=== PATIENT | female | born 1950 | race Caucasian/White ===

== ENCOUNTER 2019-10-22 19:21 | Inpatient (IN) | payer MEDICARE, OTHER ==
[~2019-10-22] VITALS: Ht 160 cm; Wt 91.2 kg
--- NOTE | 2019-10-22 19:23 | NUR ---
MIRROR FABRICATION SUPERVISOR CALLED NO AVAILABLE SITTER. OK TO USE SECURITY AT THIS TIME.
--- NOTE | 2019-10-22 19:26 | NUR ---
1:1 MATTRESS PACKER YANELIS AT BEDSIDE FOR PATIENT SAFETY ROOM 04B.
--- NOTE | 2019-10-22 19:30 | NUR ---
PATIENT WAS MSE BY DR GARIBAY IN ROOM 04B.
[2019-10-22] MEDS ORDERED: LORAZEPAM 0.5 MG TABLET PO ONE (19:45)
--- NOTE | 2019-10-22 19:45 | NUR ---
PATIENT IN BED NO C/O ANY PAIN.
[2019-10-22] MEDS ORDERED: LORAZEPAM 1 MG TABLET ONE (19:50)
--- NOTE | 2019-10-22 20:03 | NUR ---
PATIENT IS MEDICALLY CLEARED BY DR GARIBAY.
[2019-10-22] MEDS ORDERED: ALPR0.255 PO (20:13)
[2019-10-22] MEDS ORDERED: CARV12.52 PO (20:13)
[2019-10-22] MEDS ORDERED: HYDR-3980 PO (20:13)
--- NOTE | 2019-10-22 20:15 | NUR ---
1:1 COMMISSIONER OF RELOCATION SERVICES AT BEDSIDE PATIENT NOT IN ANY DISTRESS. WILL CONTINUE TO MONITOR FOR PATIENT SAFETY.
--- NOTE | 2019-10-22 20:25 | NUR ---
PATIENT WENT TO BATHROOM NORMAL STEADY GAIT.
[2019-10-22] MEDS ORDERED: ACETAMINOPHEN 325 MG TABLET PO PRN (21:00)
[2019-10-22] MEDS ORDERED: LORAZEPAM 0.5 MG TABLET PO PRN (21:00)
[2019-10-22] MEDS ORDERED: MAGNESIUM HYDROXIDE 30 ML LIQUID UDC PO PRN (21:00)
[2019-10-22] MEDS ORDERED: MAG HYDROX/AL HYDROX/SIMETH 30 ML LIQUID UDC PO PRN (21:00)
[2019-10-22 21:11] VITALS: BP 168/85
[2019-10-22] MEDS ORDERED: CARVEDILOL 12.5 MG TABLET PO ONE (22:30)
[2019-10-22] MEDS ORDERED: CARVEDILOL 12.5 MG TABLET ONE (23:25)
[2019-10-22] MEDS: HYDROCODONE/APAP 10-325 MG TABLET PO PRN (23:36)
--- NOTE | 2019-10-23 01:45 | NUR ---
GPS/RN: PT 69Y/O FEMALE, ADMITTED TO MHU FROM HOME IN THE CARE OF ADÁN FENTON/SOO. PT WAS BROUGHT IN FROM [facility] TO ER ON 5150 HOLD DUE TO SI STATEMENT AND DANGER TO SELF AND OTHERS PER DEPRESSION, ACCORDING TO ADMISSION REASON. PT PLANED TO OVERDOSE ON XANAX AND PLANED ON KILLING HER AND PT WAS BECOMING AGGRESSIVE TOWARD . UPON FACE TO FACE ASSESSMENT/EVALUATION, PT A/O X3 BUT A BIT CONFUSE, AND HYPERVERBAL AND LIKE TALKING ON AND ON. PT STATE SHE IS NOT SURE WHY SHE IS BEING PLACED HERE, MY IS THE ONE THAT NEED PSYCH EVAL AND TREATMENT, I AM ONLY DEPRESS AND TIRED OF DOING EVERYTHING FOR HIM. I LOST MY SON AND IT ALL GET ON ME THAT IS WHY I MADE THOSE COMMENT! PT DENIED SI OR PLAN OF SI. PT HISTORY: HTN, ANXIETY, CHRONIC PAIN DUE TO ACCORDING TO HER FRACTURE OF LEFT LOWER LEG AND HIP PAIN WITH BLOOD CLOT NOT FOUND ON DOCUMENT AT THIS TIME. PT RIGHTS HANDBOOK AND ADVISEMENT GIVEN, UNIT RULES EXPLAINED, PT ACKNOWLEDGED AND UNDERSTAND RULES. PT REFUSED TO NAME PERSON TO BE CONTACTED EVEN THOUGH NAME WAS AT THE ADMISSION NEXT OF KIN. PT SEEM TO BE A BIT CONFUSED, Q/15MINS HEAD CHECK INITIATED AND WILL OBSERVE FREQUENTLY. PAIN MEDICATION NORCO 10/325MG GIVE AND COREG 12.5 GIVEN PER ELEVATED BLOOD PRESSURE. PT TOOK A SHOWER AND KEPT CLEAN. AMBULATORY BUT WEAKEN LE, MAY NEED PT EVAL. WILL CONTINUE TO MONITOR.
[2019-10-23 07:30] VITALS: BP 126/84
[2019-10-23 07:55] LABS: BASOPHILS % (AUTO) 0.5 % (0.0-2.0); EOSINOPHILS # (AUTO) 0.2 K/uL (0.0-0.7); EOSINOPHILS % (AUTO) 2.7 % (0.0-7.0); HEMATOCRIT 42.3 % (31.2-41.9); HEMOGLOBIN 14.3 g/dL (10.9-14.3); LYMPHOCYTES # (AUTO) 1.9 K/uL (20.0-40.0); MEAN CORPUSCULAR HEMOGLOBIN 31.5 uug (24.7-32.8); MEAN CORPUSCULAR HGB CONC 34 g/dL (32.3-35.6); MEAN CORPUSCULAR VOLUME 92.9 fL (75.5-95.3); MONOCYTES # (AUTO) 0.6 K/uL (2.0-10.0); MONOCYTES % (AUTO) 9.9 % (0.0-11.0); NEUTROPHILS % (AUTO) 53.9 % (38.5-71.5); PLATELET COUNT (AUTO) 155 K/uL (179-408); RED BLOOD CELL COUNT(AUTO) 4.55 MIL/uL (3.63-4.92); WHITE BLOOD COUNT (AUTO) 5.6 K/uL (3.8-11.8)
[2019-10-23] MEDS: CARVEDILOL 12.5 MG TABLET PO SCH ×2 (08:26→17:21)
[2019-10-23 10:46] LABS: THYROID STIMULATING HORMONE 1.139 mIU/mL (0.358-3.740)
[2019-10-23 10:59] LABS: BILIRUBIN,TOTAL 0.7 mg/dL (0.2-1.0); CREATININE 1.3 mg/dL (0.6-1.3); MAGNESIUM 1.4 mg/dL (1.8-2.4); PHOSPHOROUS 3.7 mg/dL (2.5-4.9); POTASSIUM 3.3 mmol/L (3.5-5.1); TOTAL PROTEIN, SERUM 6.7 g/dL (6.4-8.2)
[2019-10-23] MEDS: GABAPENTIN 100 MG CAPSULE PO SCH ×2 (12:01→17:20)
[2019-10-23] MEDS: DULOXETINE 60 MG CAPSULE.DR PO SCH (13:10)
[2019-10-23 14:17] LABS: *BILIRUBIN,URIN NEGATIVE (NEGATIVE); *BLOOD, URINE 1+ (NEGATIVE); *COLOR,URINE YELLOW (YELLOW); *KETONES,URINE NEGATIVE (NEGATIVE); *UROBILINOGEN,URINE 0.2 E.U./dl (NORMAL); NITRITE, URINE NEGATIVE (NEGATIVE); UGLUCOSE 2+ (NEGATIVE)
[2019-10-23 14:29] LABS: *AMPHETAMINE, URINE NEGATIVE (NEGATIVE); *BARBITURATE, URINE NEGATIVE (NEGATIVE); *CANNABINOID, URINE NEGATIVE (NEGATIVE); *COCCAINE, URINE NEGATIVE (NEGATIVE); *OPIATE, URINE POSITIVE (NEGATIVE); *PHENCYCLIDINE SCREEN,URINE NEGATIVE (NEGATIVE)
[2019-10-23 14:50] LABS: *CLARITY,URINE HAZY (CLEAR); LEUKOCYTE ESTERASE ,URINE TRACE (NEGATIVE)
[2019-10-23 14:52] LABS: BACTERIA,URINE MANY /HPF (NONE SEEN); SQUAMOUS EPITHELIAL CELL,UR MODERATE /HPF (NONE SEEN)
--- NOTE | 2019-10-23 15:39 | NUR ---
MARICARMEN UR Note: Spoke with Lester hospice case manager from [facility] who stated that they have authorization for this patient for today and will follow up tomorrow for clinical review. MARICARMEN will faxed patient's progress notes tomorrow for continued authorization. Awaiting for authorization #. Addendum: 10/23/19 at 1547 by LINDA SIMS Lester's phone number ([phone]; fax: [phone]).
--- NOTE | 2019-10-23 15:41 | NUR ---
INITIAL DISCHARGE PLAN: Pt currently lives in her personal home with her located at [address] , [place] [address]; [phone].Per pt, she plans to return home after discharge. MARICARMEN will work with pt, pt family, and MD regarding appropriate discharge planning. SW will form a safe and proper discharge.
[2019-10-23 16:00] VITALS: BP 127/86
[2019-10-23 17:06] LABS: *CREATININE,URINE 161.2 mg/dL (30-125); *URINE TOTAL PROTEIN RANDOM 27.3 mg/dL (<150/24HR)
[2019-10-23] MEDS: CEphaleXIN 500 MG CAPSULE PO SCH (17:20)
[2019-10-23] MEDS: ALPRAZOLAM 0.5 MG TABLET PO PRN (17:29)
[2019-10-23] MEDS ORDERED: CARVEDILOL 12.5 MG TABLET PO SCH ×2 (18:00→21:00)
--- NOTE | 2019-10-23 18:06 | NUR ---
GPS NOTE:. Received patient this am in bed. Slight incontinence noted. Urine specimen sent to lab, positive for UTI. PC ANALYST notified and orders received for antibiotics. Patient has been anxious, repetitive and hyperverbal the whole shift. Medicated per order. Patient is unclear of facts when asked questions, and gives different answers for same question to different people. VS have been stable, patient is ambulatory with a walker and medication compliant. Continuing to monitor for safety , anxiety and behavior escalation.
[2019-10-23] MEDS: HYDROCODONE/APAP 10-325 MG TABLET PO PRN (20:45)
[2019-10-23 21:30] VITALS: BP 148/78
[2019-10-23] MEDS: ZOLPIDEM 5 MG TABLET PO PRN (22:07)
--- NOTE | 2019-10-24 06:03 | NUR ---
Patient slept a total of 5.15 hours.
[2019-10-24 07:27] LABS: THYROID STIMULATING HORMONE 1.904 mIU/mL (0.358-3.740)
[2019-10-24 07:30] VITALS: BP 104/61
[2019-10-24 08:46] LABS: CREATININE 1.4 mg/dL (0.6-1.3); MAGNESIUM 1.5 mg/dL (1.8-2.4); PHOSPHOROUS 4.3 mg/dL (2.5-4.9); POTASSIUM 4.1 mmol/L (3.5-5.1); URIC ACID 6.4 mg/dL (2.6-6.0)
[2019-10-24] MEDS: DULOXETINE 60 MG CAPSULE.DR PO SCH ×2 (09:28→18:16)
[2019-10-24] MEDS: CEphaleXIN 500 MG CAPSULE PO SCH ×2 (09:29→18:15)
[2019-10-24] MEDS: CARVEDILOL 12.5 MG TABLET PO SCH ×2 (09:29→18:15)
[2019-10-24] MEDS: GABAPENTIN 100 MG CAPSULE PO SCH (09:29)
--- NOTE | 2019-10-24 09:30 | NUR ---
Gps/Contact Center Specialist- Noted patient with crying spells during interview, noted jumping from one topic to another, topics does not made sense. Hesitancy in taking her morning meddications, reviewed with patient. Encouraged participation in her group therapy. Encouraged to continue to verbalized feelings and needs.
[2019-10-24] MEDS ORDERED: CEphaleXIN 500 MG CAPSULE PO SCH (09:49)
[2019-10-24] MEDS: ALPRAZOLAM 0.5 MG TABLET PO PRN (10:16)
[2019-10-24] MEDS ORDERED: MAGNESIUM OXIDE 400 MG TABLET PO ONE ×2 (10:45→12:00)
--- NOTE | 2019-10-24 11:00 | NUR ---
UR Note: Authorization #[id number] Spoke with Lester outpatient case manager from [facility] and gave updated clinicals verbally as well as fax. Lester's phone number ([phone]; fax: [phone]).
[2019-10-24] MEDS ORDERED: diphenhydrAMINE 1% CREAM 28.3 GM TUBE TP PRN (11:30)
--- NOTE | 2019-10-24 12:15 | NUR ---
Gps/Belly Dump Driver- Received call from Dr Greene ( Radiology) regarding results of Doppler study right leg. (Partial thrombus to right popliteal waqar) results called to Argelia Clifford NP, will check results.
--- NOTE | 2019-10-24 15:37 | NUR ---
Social Work Firearms Report (DOJ): Supervisor Water [employer] Plant completed and submitted a [employer] firearms report for 5150 danger to self and others certification. A copy of report has been placed in patient chart.
[2019-10-24 16:00] VITALS: BP_SYST 107; BP_SYST 159; BP_DIAS 83; BP_DIAS 86
--- NOTE | 2019-10-24 17:30 | NUR ---
Gps/Learning Operations Specialist- Patient was able to talked to her daughter this pm. Interacting fairly well with her roommate, easily gets anxious, worried about her , who is unable to take care of himself per pt.
[2019-10-24] MEDS: HYDROCODONE/APAP 10-325 MG TABLET PO PRN (18:53)
[2019-10-24 20:00] VITALS: BP 121/78
[2019-10-24] MEDS: ZOLPIDEM 5 MG TABLET PO PRN (22:04)
[2019-10-25] MEDS: HYDROCODONE/APAP 10-325 MG TABLET PO PRN ×3 (01:05→18:53)
[2019-10-25 07:30] VITALS: BP 92/52
[2019-10-25] MEDS: CARVEDILOL 12.5 MG TABLET PO SCH ×2 (08:00→17:59)
[2019-10-25 08:42] LABS: BASOPHILS % (AUTO) 0.5 % (0.0-2.0); EOSINOPHILS # (AUTO) 0.2 K/uL (0.0-0.7); EOSINOPHILS % (AUTO) 3.6 % (0.0-7.0); HEMATOCRIT 42.2 % (31.2-41.9); HEMOGLOBIN 14.3 g/dL (10.9-14.3); LYMPHOCYTES % (AUTO) 33.5 % (20.5-51.5); MEAN CORPUSCULAR HEMOGLOBIN 31.5 uug (24.7-32.8); MEAN CORPUSCULAR HGB CONC 34 g/dL (32.3-35.6); MEAN CORPUSCULAR VOLUME 93.1 fL (75.5-95.3); MONOCYTES # (AUTO) 0.6 K/uL (2.0-10.0); MONOCYTES % (AUTO) 9.7 % (0.0-11.0); NEUTROPHILS # (AUTO) 3.1 K/uL (1.8-8.9); NEUTROPHILS % (AUTO) 52.7 % (38.5-71.5); PLATELET COUNT (AUTO) 159 K/uL (179-408); RED BLOOD CELL COUNT(AUTO) 4.53 MIL/uL (3.63-4.92); WHITE BLOOD COUNT (AUTO) 5.9 K/uL (3.8-11.8)
[2019-10-25] MEDS: DULOXETINE 60 MG CAPSULE.DR PO SCH ×2 (08:42→16:57)
[2019-10-25] MEDS: CEphaleXIN 500 MG CAPSULE PO SCH ×2 (08:42→16:57)
[2019-10-25 08:52] LABS: CREATININE 1.3 mg/dL (0.6-1.3); MAGNESIUM 1.6 mg/dL (1.8-2.4); PHOSPHOROUS 4.6 mg/dL (2.5-4.9); POTASSIUM 3.8 mmol/L (3.5-5.1)
[2019-10-25] MEDS: ALPRAZOLAM 0.5 MG TABLET PO PRN ×2 (09:31→21:26)
[2019-10-25 10:54] VITALS: BP 132/83
--- NOTE | 2019-10-25 11:00 | NUR ---
Gps/Public Health- Showered self ind. after set up,verbalized adequate relief from her lower back pain. Still gets emotionally labile, verbalized feelings thet she is sorry unable to take care of her that is debilitated from parkinson. Verbalized feelings of being depressed, but denies any intension to hurt self.
[2019-10-25] MEDS ORDERED: MAGNESIUM OXIDE 400 MG TABLET PO ONE (12:15)
[2019-10-25 15:21] VITALS: BP 125/68
--- NOTE | 2019-10-25 15:46 | NUR ---
SW Family Contact: SW spoke with patient's daughter, Toshia ([phone]) who was concerned about the patient's discharge plan. This clinical writer informed Toshia about the patient's insurance, [employer], which is not authorizing for continued stay at the hospital. Toshia became verbally aggressive with this clinical writer and litigious stave log cut off saw operator involved if the patient is discharged unstable. This clinical writer attempted to explain to Toshia that the decision is not the social workers however, it is [employer] that is not authorizing for the patient to continue to get treatment in the hospital. Toshia stated that there is a police report that the patient cannot return home and she has no where to go. Toshia was alleging "you cannot just throw her in the street". This clinical writer firmly stated that this is not the case. Toshia requested to speak with someone else and hung up the phone. This clinical writer spoke with director Macey Mejia LCSW and attempted to call Toshia twice, however phone rang and went to voicemail both times. One voicemail was left to return our call back. This clinical writer then received a call from patient's niece, Angelica ([phone]) who spoke with Toshia and was calling to clarify the information mentioned above. This clinical writer explain the [employer] process and that they are not authorizing the patient's stay. Angelica was more understanding. Angelica stated that all they want is the best care for the patient and this clinical writer assured that we want the best and safest treatment and discharge plan for the patient as well. Angelica stated that they will look for a placement for the patient and will inform this clinical writer Monday by 10am.
--- NOTE | 2019-10-25 17:30 | NUR ---
Gps/Company Miner Blasting- Interacting fairly well with her roommate, patient conversat, emotionally labile, crying spells, verbalized her addiction to pain medications in the past years as well as dependency to xanax, encouraged continued verbalizations of her needs and feelings.
[2019-10-25] MEDS: RIVAROXABAN 10 MG TABLET PO SCH (18:43)
[2019-10-25 20:20] VITALS: BP 139/79
[2019-10-26] MEDS: ZOLPIDEM 5 MG TABLET PO PRN (01:11)
[2019-10-26] MEDS: HYDROCODONE/APAP 10-325 MG TABLET PO PRN ×3 (02:23→21:13)
[2019-10-26 07:30] VITALS: BP 105/58
[2019-10-26] MEDS: DULOXETINE 60 MG CAPSULE.DR PO SCH ×2 (09:16→17:17)
[2019-10-26] MEDS: CARVEDILOL 12.5 MG TABLET PO SCH ×2 (09:17→18:10)
[2019-10-26] MEDS: CEphaleXIN 500 MG CAPSULE PO SCH ×2 (09:17→17:17)
[2019-10-26] MEDS ORDERED: LORATADINE 10 MG TABLET PO PRN (10:00)
--- NOTE | 2019-10-26 15:58 | NUR ---
GPS: PT A/OX3. PT WAS RECEIVED IN BED, NO S/S OF SOB, BREATHING EVEN WNL. PT ATE BREAKFAST IN ROOM, REFUSED GROUP ACTIVITY. PT NOTED C/O OF ALLERGY SYMPTOMS SAYING SHE CAN FEEL IT COMING! LEGAL INSTRUCTOR WAS INFORMED AND PRN ANTIALLERGY MED ORDER RECEIVED. PT AMBULATORY WITH STABLE GAIT USING WALKER. PT C/O LEFT KNEE AND HIP CHRONIC PAIN AND PRN NORCO 10/325MG GIVEN AT 1356. REASSESSED AND PT REPORT EFFECTIVE. NO MAJOR BEHAVIOR NOTED, PT DENIED SI, OR INTENT TO HARM SELF OR OTHERS BUT PT IS DEPRESS NOT WANTING TO ASSOCIATE WITH OTHERS. ENCOURAGED TO VENT OUT FEELINGS AND CONTINUE MONITOR.
[2019-10-26 16:00] VITALS: BP 154/85
[2019-10-26] MEDS: RIVAROXABAN 10 MG TABLET PO SCH (18:11)
[2019-10-26 20:45] VITALS: BP 116/79
[2019-10-26] MEDS: ALPRAZOLAM 0.5 MG TABLET PO PRN (21:13)
[2019-10-27] MEDS: ZOLPIDEM 5 MG TABLET PO PRN ×2 (00:40→21:13)
--- NOTE | 2019-10-27 06:35 | NUR ---
Received Pt in her room, in bed awake. A+Ox3, VS stable. Pt was tearful on approach, and appears very depressed. Pt denies SI and denies ever wanting to hurt herself, blaming the whole reason for her admission on her at home being "sick" of her. Denies SI/HI and verbally contracts for safety. Pt is hyperverbal with pressured speech and tangential in thought process, emotional support provided.
[2019-10-27 07:30] VITALS: BP 113/73
[2019-10-27] MEDS: CEphaleXIN 500 MG CAPSULE PO SCH ×2 (08:22→17:35)
[2019-10-27] MEDS: DULOXETINE 60 MG CAPSULE.DR PO SCH ×2 (08:22→17:38)
[2019-10-27] MEDS: CARVEDILOL 12.5 MG TABLET PO SCH ×2 (08:23→18:00)
[2019-10-27] MEDS: HYDROCODONE/APAP 10-325 MG TABLET PO PRN ×2 (08:29→19:43)
[2019-10-27] MEDS: ALPRAZOLAM 0.5 MG TABLET PO PRN ×2 (09:39→18:44)
[2019-10-27 15:32] VITALS: BP 125/53
--- NOTE | 2019-10-27 16:28 | NUR ---
GPS: RECEIVED PT AWAKE IN BED, A/OX3. NO S/S OF SOB, V/S STABLE AND WNL. PT CONTINUE TO REFUSED GROUP ACTIVITY AND STAYS IN HER ROOM MOST TIMES DURING SHIFT. PT AMBULATORY WITH STABLE GAIT USING WALKER AND WITHOUT WALKER MOST TIMES. PRN PAIN MEDICATION GIVEN NORCO 10/325MG AT 0829 PER C/O LEFT KNEE, LEG AND HIP CHRONIC PAIN. REASSESSED AND PT REPORT SOME EFFECT. NO MAJOR BEHAVIOR NOTED BUT DEPRESS AND OVER CONCERN WITH HEALTH. PT CONSTANTLY LINING UP MEDICATIONS THAT SHE WILL TAKE BEFORE THE END OF THE DAY. SUCH XANAX BEFORE THE ANXIETY KICKS IN. 0939 PT REQUESTED FOR ANTIANXIETY AND PRN XANAX WAS GIVEN. PT DENIED SI, OR INTENT TO HARM SELF OR OTHERS. PT DAUGHTER CALLED AND WAS TRYING TO CLARIFY D/C HOME INFORMATION, ADVISED TO CALL ON WORKING DAY TO SPEAK TO SD DUE TO LIMITED INFO NOTED ON SD NOTES. ENCOURAGED TO VENT OUT FEELINGS. PT C/O FEELING CONSTIPATED AND WANT SOMETHING BEFORE THE NIGHT. PRN MOM 30ML GIVEN AT 1622 PT INSIST OF STOOL SOFTER NOW. WILL CONTINUE MONITOR.
[2019-10-27] MEDS: RIVAROXABAN 10 MG TABLET PO SCH (18:18)
[2019-10-27 20:26] VITALS: BP 130/80
[2019-10-28 07:30] VITALS: BP 111/49
[2019-10-28] MEDS: CARVEDILOL 12.5 MG TABLET PO SCH ×2 (08:00→16:50)
[2019-10-28] MEDS: CEphaleXIN 500 MG CAPSULE PO SCH ×2 (08:40→16:48)
[2019-10-28] MEDS: DULOXETINE 60 MG CAPSULE.DR PO SCH ×2 (08:40→16:50)
[2019-10-28] MEDS: HYDROCODONE/APAP 10-325 MG TABLET PO PRN (08:41)
[2019-10-28] MEDS: ALPRAZOLAM 0.5 MG TABLET PO PRN ×2 (09:57→16:46)
--- NOTE | 2019-10-28 15:00 | NUR ---
MARICARMEN Note: MARICARMEN attempted to call Lester case managers at [facility] ([phone]) 4 times but phone does not ring or have a dial tone. Unable to reach Lester to inform of patient's discharge today. Will attempt to reach again tomorrow.
--- NOTE | 2019-10-28 15:10 | NUR ---
Brief Substance Abuse Intervention: Patient was provided with a brief substance abuse intervention and referred to the following substance abuse programs: [facility] Substance Abuse Self-helpline ([phone]); [facility] [address] [place] [address] ([phone]); [facility] [address] [facility] [address] ([phone]); [facility] ([phone]); [facility] ([phone]); [facility] ([phone]); [facility] ([phone]).
--- NOTE | 2019-10-28 15:27 | NUR ---
SW Discharge Note: Patient will be discharged home today [address] [place] [address] ([phone]). Patient will be providing her own transportation today at 4pm. Patient is alert and oriented times 4. Patient is aware and agreeable with discharge plans. Patient denies suicidal or homicidal ideation. Patient presents calm and cooperative with discharge. Patient will be following up with her primary care physician Dr. Abdi [address], [place] [address] ([phone]) and has an appointment scheduled on Wednesday October 30, 2019 at 10am. Patient will be following up with her psychiatrist Dr. Durant [address] [place] [id number] ([phone]), this specifications writer left a voicemail per office answering machine to follow up with the patient upon discharge. Patient was provided with a brief substance abuse intervention and referred to the following substance abuse programs: [facility] Substance Abuse Self-helpline ([phone]); [facility] [address] [place] [address] ([phone]); [facility] [address] [place] [address] ([phone]); [facility] ([phone]); [facility] ([phone]); [facility] ([phone]); [facility] ([phone]).
[2019-10-28 16:00] VITALS: BP 121/79
[2019-10-28] MEDS: RIVAROXABAN 10 MG TABLET PO SCH (16:46)
[2019-10-28 16:50] VITALS: BP 121/79
--- NOTE | 2019-10-28 17:03 | NUR ---
Social Work Discharge Note Received voicemail from Magy head requesting a call back. Tried the number she left: [phone] many times but the number has a busy tone so was unable to reach her. Patient is not conserved and is electing to return home with her . She was advised to enter a substance abuse program as soon as possible.
--- NOTE | 2019-10-28 17:23 | NUR ---
Patient discharged to home via Uber. Prescriptions, follow up instructions and pertinent papers were sent with patient. Patients PM medications were given prior to discharge. Bleach Boiler Puller instructed patient to call 911 or go the emergency room with any feelings of hurting self or hurting someone else. Patient denies SI and HI at time of leaving the hospital. Prior to discharge patient called and informed him of her arrival, but that she was going to stay at a motel for the night. All valuables sent with patient, VS were stable upon discharge No acute distress.
== END 2019-10-28 17:15 | disposition home or self-care (01) | DRG 885 ==
LOC: ER 19:24 → EDBD 19:24 → GPS 20:47
PROVIDERS: ADMIT Psychiatry & Neurology Psychiatry; ATTEND Registered Nurse
DX: F33.2 Major depressive disorder, recurrent severe without psychotic features (principal); N18.9 Chronic kidney disease, unspecified; N17.9 Acute kidney failure, unspecified; N39.0 Urinary tract infection, site not specified; R45.851 Suicidal ideations; F41.1 Generalized anxiety disorder; E66.01 Morbid (severe) obesity due to excess calories; Z68.35 Body mass index [BMI] 35.0-35.9, adult; Z86.718 Personal history of other venous thrombosis and embolism; E83.42 Hypomagnesemia; J30.2 Other seasonal allergic rhinitis; I12.9 Hypertensive chronic kidney disease with stage 1 through stage 4 chronic kidney disease, or unspecified chronic kidney disease; E11.22 Type 2 diabetes mellitus with diabetic chronic kidney disease; B96.1 Klebsiella pneumoniae [K. pneumoniae] as the cause of diseases classified elsewhere; R45.850 Homicidal ideations
CPT/HCPCS: 36415; 76770; 80307; 83735; 83970; 84100; 84155; 84156; 84165; 84300; 84443; 84550; 85025; 87077; 87086; A4663